=== PATIENT | male | born 1955 | race Caucasian/White ===

== ENCOUNTER 2016-12-18 11:28 | Day surgery (SDC) | payer OTHER ==
[~2016-12-18] VITALS: Ht 165.1 cm; Wt 75.8 kg
[~2016-12-18 11:28] MED LIST: ASPIRIN; CHILD ASPIRIN81 M1 PO; COREG; COREG25 M1 PO; FISH OIL 1,0001 EAC7 PO; LIPITOR; LIPITOR20 MG PO; LISINOPRIL; METFORMIN HCL500 MG PO; PRINIVIL10 MG PO; TRAMADOL HCL50 MG PO; ULTRAM; XARELTO20 MG PO
[2016-12-18 12:00] LABS: POINT-OF-CARE METER ID UU13113694
== END 2016-12-18 12:36 | disposition home or self-care (01) ==
LOC: PAIN 11:28 → SDC 12:30 → PAIN 12:36
PROVIDERS: Anesthesiology Pain Medicine
DX: M47.816 Spondylosis without myelopathy or radiculopathy, lumbar region (principal); M54.5 Low back pain; G89.29 Other chronic pain; I10 Essential (primary) hypertension; E11.9 Type 2 diabetes mellitus without complications; I48.91 Unspecified atrial fibrillation; K21.9 Gastro-esophageal reflux disease without esophagitis; E78.5 Hyperlipidemia, unspecified; F41.9 Anxiety disorder, unspecified; Z79.82 Long term (current) use of aspirin; Z79.84 Long term (current) use of oral hypoglycemic drugs; Z79.01 Long term (current) use of anticoagulants; Z79.891 Long term (current) use of opiate analgesic; Z95.810 Presence of automatic (implantable) cardiac defibrillator
CPT/HCPCS: 82948; J1030; J2250; J3010; S0020

== ENCOUNTER 2016-12-25 07:46 | Day surgery (SDC) | payer OTHER ==
[~2016-12-25] VITALS: Ht 165.1 cm; Wt 75.8 kg
[2016-12-25 08:26] LABS: POINT-OF-CARE METER ID UU13113694
== END 2016-12-25 08:50 | disposition home or self-care (01) ==
LOC: PAIN 07:46 → SDC 08:15 → PAIN 08:15
PROVIDERS: Anesthesiology Pain Medicine
DX: M47.816 Spondylosis without myelopathy or radiculopathy, lumbar region (principal); M54.5 Low back pain; G89.29 Other chronic pain; M54.9 Dorsalgia, unspecified; M79.1 Myalgia; I48.91 Unspecified atrial fibrillation; E78.5 Hyperlipidemia, unspecified; I10 Essential (primary) hypertension; M41.9 Scoliosis, unspecified; F41.9 Anxiety disorder, unspecified; I25.10 Atherosclerotic heart disease of native coronary artery without angina pectoris; K21.9 Gastro-esophageal reflux disease without esophagitis; Z79.82 Long term (current) use of aspirin; Z79.84 Long term (current) use of oral hypoglycemic drugs; Z79.01 Long term (current) use of anticoagulants
CPT/HCPCS: 82948; J1030; J2250; J3010; S0020

== ENCOUNTER 2017-03-24 09:40 | Day surgery (SDC) | payer OTHER ==
[~2017-03-24] VITALS: Ht 165.1 cm; Wt 77.6 kg
[~2017-03-24 09:40] MED LIST changes: +ASPIR 8181 M1 PO; -CHILD ASPIRIN81 M1 PO
[2017-03-24 10:19] LABS: POINT-OF-CARE METER ID UU14174212
== END 2017-03-24 11:05 | disposition home or self-care (01) ==
LOC: PAIN 09:40 → SDC 10:30 → PAIN 11:05
PROVIDERS: Anesthesiology Pain Medicine
DX: M47.816 Spondylosis without myelopathy or radiculopathy, lumbar region (principal); M54.5 Low back pain; G89.29 Other chronic pain; I25.10 Atherosclerotic heart disease of native coronary artery without angina pectoris; I48.91 Unspecified atrial fibrillation; I10 Essential (primary) hypertension; E11.9 Type 2 diabetes mellitus without complications; E78.5 Hyperlipidemia, unspecified; K21.9 Gastro-esophageal reflux disease without esophagitis; Z79.82 Long term (current) use of aspirin; Z79.84 Long term (current) use of oral hypoglycemic drugs; Z79.891 Long term (current) use of opiate analgesic; M41.9 Scoliosis, unspecified
CPT/HCPCS: 82948; J1030; J2250; J3010; S0020

== ENCOUNTER 2017-04-02 07:48 | Day surgery (SDC) | payer OTHER ==
[~2017-04-02] VITALS: Ht 165.1 cm; Wt 77.6 kg
[2017-04-02 08:17] LABS: POINT-OF-CARE METER ID UU14174212
== END 2017-04-02 09:30 | disposition home or self-care (01) ==
LOC: PAIN 07:48 → SDC 08:30 → PAIN 08:30
PROVIDERS: Anesthesiology Pain Medicine
DX: M47.816 Spondylosis without myelopathy or radiculopathy, lumbar region (principal); M54.5 Low back pain; G89.29 Other chronic pain; M79.1 Myalgia; E11.9 Type 2 diabetes mellitus without complications; I10 Essential (primary) hypertension; I48.91 Unspecified atrial fibrillation; I25.10 Atherosclerotic heart disease of native coronary artery without angina pectoris; F41.9 Anxiety disorder, unspecified; K21.9 Gastro-esophageal reflux disease without esophagitis; Z79.82 Long term (current) use of aspirin; Z95.810 Presence of automatic (implantable) cardiac defibrillator; Z79.84 Long term (current) use of oral hypoglycemic drugs; Z79.01 Long term (current) use of anticoagulants
CPT/HCPCS: 82948; J1030; J2250; J3010; S0020

== ENCOUNTER 2017-04-10 02:43 | Emergency (ER) | payer OTHER ==
[~2017-04-10] VITALS: Ht 165.1 cm; Wt 79.7 kg
[2017-04-10] MEDS ORDERED: TOBREX5 ML LEFT EYE (03:06)
[2017-04-10] MEDS ORDERED: ERYTHROMYC1 APPLICAT LEFT EYE (03:06)
[2017-04-10 03:22] VITALS: BP 133/89
== END 2017-04-10 03:23 | disposition home or self-care (01) ==
LOC: EME 02:43 → EXP 02:43
DX: S05.02XA Injury of conjunctiva and corneal abrasion without foreign body, left eye, initial encounter (principal); W22.8XXA Striking against or struck by other objects, initial encounter; E11.9 Type 2 diabetes mellitus without complications; Z79.84 Long term (current) use of oral hypoglycemic drugs; Z79.01 Long term (current) use of anticoagulants; Z79.82 Long term (current) use of aspirin
CPT/HCPCS: 99281; 99283

== ENCOUNTER 2017-05-05 13:30 | Day surgery (SDC) | payer OTHER ==
[~2017-05-05] VITALS: Ht 165.1 cm; Wt 77.6 kg
[~2017-05-05 13:30] MED LIST changes: +ERYTHROMYC1 APPLICAT LEFT EYE; +TOBREX5 ML LEFT EYE
[2017-05-05 14:13] LABS: POINT-OF-CARE METER ID UU14174212
== END 2017-05-05 15:15 | disposition home or self-care (01) ==
LOC: PAIN 13:30 → SDC 14:30 → PAIN 14:30
PROVIDERS: Anesthesiology Pain Medicine
DX: M47.816 Spondylosis without myelopathy or radiculopathy, lumbar region (principal); M54.5 Low back pain; G89.29 Other chronic pain; I10 Essential (primary) hypertension; E11.9 Type 2 diabetes mellitus without complications; I48.91 Unspecified atrial fibrillation; M41.9 Scoliosis, unspecified; Z79.82 Long term (current) use of aspirin; M79.1 Myalgia; E78.5 Hyperlipidemia, unspecified; I25.10 Atherosclerotic heart disease of native coronary artery without angina pectoris; F41.9 Anxiety disorder, unspecified; Z79.891 Long term (current) use of opiate analgesic; Z79.01 Long term (current) use of anticoagulants; Z79.84 Long term (current) use of oral hypoglycemic drugs; Z95.0 Presence of cardiac pacemaker
CPT/HCPCS: 82948; J1030; J1885; J2250; J3010; S0020

== ENCOUNTER 2017-05-14 08:55 | Day surgery (SDC) | payer OTHER ==
[~2017-05-14] VITALS: Ht 165.1 cm; Wt 77.6 kg
[2017-05-14 09:26] LABS: POINT-OF-CARE METER ID UU14174212
== END 2017-05-14 10:35 | disposition home or self-care (01) ==
LOC: PAIN 08:55 → SDC 09:30 → PAIN 09:30
PROVIDERS: Anesthesiology Pain Medicine
DX: M47.816 Spondylosis without myelopathy or radiculopathy, lumbar region (principal); M54.5 Low back pain; G89.29 Other chronic pain; M79.1 Myalgia; F41.9 Anxiety disorder, unspecified; I25.10 Atherosclerotic heart disease of native coronary artery without angina pectoris; I48.91 Unspecified atrial fibrillation; E11.9 Type 2 diabetes mellitus without complications; E78.5 Hyperlipidemia, unspecified; I10 Essential (primary) hypertension; Z79.82 Long term (current) use of aspirin; Z79.891 Long term (current) use of opiate analgesic; Z79.84 Long term (current) use of oral hypoglycemic drugs
CPT/HCPCS: 82948; J1030; J2250; J3010; S0020

== ENCOUNTER 2017-07-24 05:25 | Day surgery (SDC) | payer OTHER ==
[~2017-07-24] VITALS: Ht 167.6 cm; Wt 80.2 kg
[2017-07-24 06:01] VITALS: BP 133/88
[2017-07-24] MEDS ORDERED: OXYCODONE HCL5 MG PO (09:00)
[2017-07-24] MEDS ORDERED: HYDROCODON-ACE1 EA11 PO (09:00)
[2017-07-24 10:32] VITALS: BP 167/99
[2017-07-24 11:32] VITALS: BP 139/88
[2017-07-24 12:33] VITALS: BP 157/86
== END 2017-07-24 12:45 | disposition home or self-care (01) ==
LOC: SDC 05:25
PROVIDERS: Surgery
PROC: 0YU50JZ Supplement Right Inguinal Region with Synthetic Substitute, Open Approach (ICD-10-PCS; principal; 2017-07-24)
DX: K40.90 Unilateral inguinal hernia, without obstruction or gangrene, not specified as recurrent (principal); I25.10 Atherosclerotic heart disease of native coronary artery without angina pectoris; Z86.010 Personal history of colon polyps; F41.9 Anxiety disorder, unspecified; G89.29 Other chronic pain; M47.816 Spondylosis without myelopathy or radiculopathy, lumbar region; E11.9 Type 2 diabetes mellitus without complications; K21.9 Gastro-esophageal reflux disease without esophagitis; E78.5 Hyperlipidemia, unspecified; I10 Essential (primary) hypertension; Z95.810 Presence of automatic (implantable) cardiac defibrillator; Z79.82 Long term (current) use of aspirin; Z79.84 Long term (current) use of oral hypoglycemic drugs
CPT/HCPCS: 82948; C1781; J1170; J2250; J2405; J3010; S0020; S0074